=== PATIENT | male | born 1975 | race Caucasian/White ===

== ENCOUNTER 2025-03-07 13:17 | Outpatient (CLI) | payer BC, SELFPAY ==
--- NOTE | 2025-03-07 13:45 | CRLHL7_ITS ---
For Patients: As a result of the Century Cures Act, medical imaging exams and procedure reports are released immediately into your electronic medical record. You may view this report before your referring provider. If you have questions, please contact your health care provider. INDICATION: Hydronephrosis COMPARISON: None. RADIOPHARMACEUTICAL: 10.9 mCi of [id number] was administered intravenously. TECHNIQUE: Serial posterior images were obtained over the torso for 16 minutes prior to the intravenous administration of a weight-based dose of 20 mL Lasix. After Lasix administration, another 20 minutes of dynamic imaging was acquired. FINDINGS: Flow: No right renal blood flow. Differential renal function at 2 minutes: Right: 0% Left: 100% RIGHT: No renal blood flow. No collection of radiotracer in a right-sided collecting system. LEFT: Normal renal size and position. Activity identified in the ureter within 4 minutes. There is prompt rise to peak. Time to peak activity is 2.5 minutes (normal 3-5 minutes). There is prompt washout prior to Lasix administration. Pre-Lasix time to half max is 6 minutes. There is further washout after Lasix administration. Post-Lasix time to half max (T1/2 max) is 20 minutes (normal is less than 10 minutes). Likely delayed since the collecting system was already significantly empty at the time of Lasix administration. Post-void: Not obtained. IMPRESSION: 1. No appreciable right renal blood flow or function. 2. Normal left renal scintigraphy. Dictated by Joy Clemens MD @ 03/09/2025 1:50:10 PM (Electronically Signed)
[2025-03-07] MEDS: FUROSEMIDE 10 MG/ML inj 20 MG IVP (14:09)
--- NOTE | 2025-03-07 14:15 | PC.NURSE ---
Meds given per EMAR during NM test
== END 2025-03-07 13:18 | disposition home or self-care (01) ==
PROVIDERS: Visit Provider Student in an Organized Health Care Education/Training Program
DX: N13.30 Unspecified hydronephrosis (principal)
CPT/HCPCS: 78708; A9562; J1938